=== PATIENT | male | born 1950 | race Caucasian/White ===

== ENCOUNTER → 2018-08-21 | Outpatient (CLI) | payer MEDICARE ==
[~2018-08-21] MED LIST: AMLODIPINE-BEN1 EAC1 PO; HYDROCODON-ACE1 EAC9 PO; NEXIUM40 MG PO; NORVASC5 MG PO
== END ==
LOC: RAD 17:00
PROVIDERS: ATTEND Urology
DX: Z01.818 Encounter for other preprocedural examination (principal)
CPT/HCPCS: 93005

== ENCOUNTER → 2020-04-14 | Day surgery (SDC) | payer MEDICARE, OTHER ==
[2020-04-09 10:31] LABS: BASOPHILS % 0.5 % (0.0-1.0); EOSINOPHILS # (AUTO) 0.2 (0.0-0.4); EOSINOPHILS % 2.8 % (0.0-6.0); HEMATOCRIT 45.3 % (38.2-49.6); HEMOGLOBIN 15.5 g/dL (14.0-18.0); LYMPHOCYTES # (AUTO) 1.4 (1.0-3.2); LYMPHOCYTES % 22.8 % (18.0-39.1); MEAN CORPUSCULAR HEMOGLOBIN 30.1 pg (28-32); MEAN CORPUSCULAR HGB CONC 34.2 g/dL (31-35); MONOCYTES # (AUTO) 0.3 (0.2-0.8); MONOCYTES % 5.4 % (4.4-11.3); NEUTROPHILS # (AUTO) 4.2 (2.1-6.9); PLATELET COUNT 153 x10e3/uL (140-360); RED BLOOD COUNT 5.15 x10e6/uL (4.3-5.7); RED CELL DISTRIBUTION WIDTH 13.4 % (11.7-14.4)
[~2020-04-14] MED LIST changes: +AMITRIPTYLINE H25 MG PO; +FENTANYL CITRATE/PF 100MCG/2 ML INJ ONE; +LIDOCAINE HCL 2% LOCAL INJ 5 ML SDV VIAL INJ ONE; +MIDAZOLAM HCL 2 MG/2 ML VIAL ONE; +NORCO 10-325 T1 EACH PO; +PROPOFOL IV EMULSION 10 MG/ML 20 ML VIAL ONE
--- NOTE | 2020-04-14 07:15 | NUR ---
SPIRITUAL CARE - Pre-Surgery Assessment: Pt in bed. Pt's at bedside. Pt reported supportive attention from family and friends. Intervention: Speech Language Pathologist Travel provided pastoral presence, hospitality, and sympathetic listening. Acquainted pt with availability of colorist dyer while hospitalized. Outcome: Pt expressed appreciation for visit. No need for follow up indicated at this time. [facility] Spiritual Care Department O: [phone]
[2020-04-14 10:32] VITALS: BP 123/87
--- NOTE | 2020-04-14 14:45 | Operative Report ---
DATE OF PROCEDURE: 04/14/2020 SURGEON: Xavier Ochoa MD PROCEDURES PERFORMED: Esophagogastroduodenoscopy and colonoscopy. PREOPERATIVE DIAGNOSES: Epigastric pain and gastroesophageal reflux disease. POSTOPERATIVE DIAGNOSES: Multiple ulcerations at 22 cm, hiatal hernia with reflux esophagitis in the lower esophagus, gastritis, and normal duodenum. PREOPERATIVE MEDICATIONS: Consisted of general anesthesia. DESCRIPTION OF PROCEDURE: Using an Olympus EMMA video gastroscope, it was inserted in the patient's oropharynx, advanced to hypopharynx and down to the esophagus. In the upper esophagus approximately 23 to 25 cm with multiple ulcerations, biopsies were obtained. There was evidence of a hiatal hernia at 39 to 40 cm, sliding-type with reflux esophagitis right above that, biopsies were obtained. Stomach was entered and insufflated with air. The mucosa present in the cardia, fundus, body, and antrum was viewed and gastritis was seen, but no ulcerations. Biopsies were obtained in the antrum and the fundus looking for H. pylori infection. The duodenal bulb and postbulbar duodenum were found to be within normal limits. The endoscope was then withdrawn back up to the stomach, back up into the esophagus, hypopharynx, oropharynx, and out of the patient's mouth and the procedure was ended. After normal digital rectal examination, an Olympus EMMA video colonoscope was inserted into the patient's rectum and advanced to the mid descending colon. At this point, I was unable to get the scope to go beyond the area because of spasm. He had multiple diverticula without evidence of diverticulitis throughout the sigmoid colon and up into the descending colon. At this point, the colonoscope was withdrawn from the patient's rectum and the procedure was ended. A followup barium enema will be arranged. Xavier Ochoa MD SAF/MODL /[id number]
== END | disposition home or self-care (01) ==
LOC: OR 06:23
PROVIDERS: ATTEND Internal Medicine Gastroenterology
DX: K29.70 Gastritis, unspecified, without bleeding (principal); K22.70 Barrett's esophagus without dysplasia; K58.9 Irritable bowel syndrome, unspecified; K21.0 Gastro-esophageal reflux disease with esophagitis; K44.9 Diaphragmatic hernia without obstruction or gangrene; K57.30 Diverticulosis of large intestine without perforation or abscess without bleeding; I10 Essential (primary) hypertension; Z01.810 Encounter for preprocedural cardiovascular examination; Z01.812 Encounter for preprocedural laboratory examination; Z11.59 Encounter for screening for other viral diseases; Z85.46 Personal history of malignant neoplasm of prostate
CPT/HCPCS: 36415; 43239; 45378; 85025; 93005; J2001; J2250; J2704; J3010; U0002

== ENCOUNTER 2024-09-04 08:10 | Emergency (ER) | payer MEDICARE ==
[~2024-09-04] VITALS: Ht 182.9 cm; Wt 68.9 kg
[~2024-09-04 08:10] MED LIST changes: -FENTANYL CITRATE/PF 100MCG/2 ML INJ ONE; -LIDOCAINE HCL 2% LOCAL INJ 5 ML SDV VIAL INJ ONE; -MIDAZOLAM HCL 2 MG/2 ML VIAL ONE; -PROPOFOL IV EMULSION 10 MG/ML 20 ML VIAL ONE
[2024-09-04] MEDS: ONDANSETRON HCL INJ 2MG/ML 2ML 2 MG/ML VIAL IV STA (08:50)
[2024-09-04] MEDS: SODIUM CHLORIDE 0.9% 1000ML 1,000 ML IV STA (08:50)
[2024-09-04 08:55] LABS: BASOPHILS % 0.1 % (0.0-1.0); EOSINOPHILS % 0.2 % (0.0-6.0); HEMATOCRIT 47.7 % (38.2-49.6); HEMOGLOBIN 15.7 g/dL (14.0-18.0); LYMPHOCYTES # (AUTO) 0.6 (1.0-3.2); LYMPHOCYTES % 5.8 % (18.0-39.1); MEAN CORPUSCULAR HEMOGLOBIN 32.6 pg (28-32); MEAN CORPUSCULAR HGB CONC 32.9 g/dL (31-35); MONOCYTES # (AUTO) 1.1 (0.2-0.8); NEUTROPHILS # (AUTO) 8.9 (2.1-6.9); NEUTROPHILS % 83.6 % (38.7-80.0); PLATELET COUNT 111 x10e3/uL (140-360); RED BLOOD COUNT 4.82 x10e6/uL (4.3-5.7); WHITE BLOOD COUNT 10.67 x10e3/uL (4.8-10.8)
[2024-09-04 09:04] LABS: INR 0.91; PROTHROMBIN TIME 12.8 seconds (11.9-14.5)
[2024-09-04 09:05] LABS: PARTIAL THROMBOPLASTIN TIME 28.2 seconds (23.8-35.5)
[2024-09-04 09:11] VITALS: PULSE 75; RESP 20
[2024-09-04] MEDS: ALBUTEROL/IPRATROPIUM 3 ML NEB NEB ONE (09:11)
[2024-09-04 09:14] LABS: ALBUMIN 4.2 g/dL (3.5-5.0); ALBUMIN/GLOBULIN RATIO 1.3 (0.8-2.0); ANION GAP 19.5 mmol/L (8-16); CALCIUM 9.1 mg/dL (8.4-10.2); CREATININE, SERUM 1.03 mg/dL (0.72-1.25); MAGNESIUM 1.9 MG/DL (1.3-2.1); POTASSIUM 3.5 mmol/L (3.5-5.1); TOTAL PROTEIN 7.4 g/dL (6.5-8.1)
[2024-09-04 09:22] LABS: TROPONIN I 0.01 ng/mL (0-0.300)
[2024-09-04 09:24] LABS: B-TYPE NATRIURETIC PEPTIDE2 20.9 pg/mL (0-100)
[2024-09-04 09:25] LABS: INFLUENZA A AG POSITIVE (NEGATIVE)
[2024-09-04 09:26] LABS: CORONAVIRUS COVID-19 AG NEGATIVE (NEGATIVE); INFLUENZA B AG NEGATIVE (NEGATIVE)
[2024-09-04 11:42] LABS: CLARITY,URINE SL CLOUDY (CLEAR); COLOR,URINE YELLOW (YELLOW)
[2024-09-04 11:43] LABS: BILIRUBIN,URINE MODERATE (NEGATIVE); GLUCOSE, URINE 1+ (NEGATIVE); KETONES,URINE 1+ (NEGATIVE); LEUKOCYTE ESTERASE ,URINE NEGATIVE (NEGATIVE); NITRITE,URINE NEGATIVE (NEGATIVE); PH,URINE 6 (5 - 7); PROTEIN,URINE DIPSTICK 2+ (NEGATIVE)
[2024-09-04 11:49] LABS: BACTERIA,URINE MODERATE /HPF; EPITHELIAL CELLS,URINE FEW /LPF; RBC,URINE 0-5 /HPF (0-5)
[2024-09-04 12:53] VITALS: PULSE 59; RESP 18; TEMP 98; O2SAT 97
== END 2024-09-04 13:00 | disposition home or self-care (01) ==
LOC: ER 08:16
DX: R05.9 Cough, unspecified (principal); J10.1 Influenza due to other identified influenza virus with other respiratory manifestations; K44.9 Diaphragmatic hernia without obstruction or gangrene; R11.2 Nausea with vomiting, unspecified; R53.1 Weakness; I10 Essential (primary) hypertension; Z11.52 Encounter for screening for COVID-19; Z85.46 Personal history of malignant neoplasm of prostate
CPT/HCPCS: 36415; 71045; 71260; 80053; 81001; 82550; 83605; 83735; 83880; 84484; 85025; 85379; 85610; 85730; 87040; 87086; 87428; 93005; 99284; J2405; J2470; J7030